=== PATIENT | female | born 1995 | race Caucasian/White ===

== ENCOUNTER → 2023-11-19 | Outpatient (CLI) | payer OTHER | LOC: M RAD 14:33 | PROVIDERS: ATTEND Physician Assistant | DX: H93.A1 Pulsatile tinnitus, right ear (principal) ==

== ENCOUNTER → 2023-12-22 | Outpatient (CLI) | payer OTHER ==
[~2023-12-22] MED LIST: PROHANCE 279.3MG/ML 15ML VIAL ONE
== END ==
LOC: M PLAIMG 12:20
PROVIDERS: ATTEND Physician Assistant
DX: H93.A1 Pulsatile tinnitus, right ear (principal)
CPT/HCPCS: 70553; A9576